=== PATIENT | female | born 1935 | race Caucasian/White ===

== ENCOUNTER → 2018-04-10 07:47 | Outpatient (CLI) | payer MEDICARE, BC, SELFPAY ==
--- NOTE | 2018-04-10 07:51 | US_ITS ---
STUDY: THYROID ULTRASOUND REASON FOR EXAM: Female, 82 years old. Nodules TECHNIQUE: Ultrasound evaluation of the thyroid was performed with real-time and static hobbs-scale imaging. COMPARISON: None. FINDINGS: RIGHT LOBE: The right lobe of the thyroid gland measures 5.5x2.3x1.9 cm. There is a heterogeneous echotexture. Multiple nodules in the right thyroid lobe. Hypoechoic solid nodule in the right thyroid lobe measuring 11 x 14 x 9 mm. The lesion is solid with regular margins and intra- nodular doppler flow. LEFT LOBE: The left lobe of the thyroid gland measures 5.6 x 2.1 x 1.5 cm. There is a heterogeneous echotexture. There is a nodule in the inferior thyroid lobe measuring 14 x 17 x 7 mm. This contains internal septations. The lesion is cystic with regular margins and shilpi nodular doppler flow. ISTHMUS: The isthmus measures 5 mm. Isthmus nodule measures 5 x 4 x 2 mm. The lesion is solid with regular margins and intra- nodular doppler flow. US/Thyroid IMPRESSION: Solid right thyroid nodules and isthmus nodule. Cystic avascular nodule of the left thyroid lobe. Both lobes are diffusely heterogeneous. Electronically Signed: Tone Terry MD at 17:16 EDT , Service support ,
[2018-04-10 08:22] LABS: Red Blood Cells-Urine 0 SEEN /hpf (0-5)
[2018-04-10 09:15] LABS: Absolute Lymphocyte Count 1.85 X10^3/ul (0.83-4.51); Absolute Neutrophil Count 4.1 X10^3/uL (2.0-7.7); Basophil# 0.03 X10^3/uL; Basophil% 0.5 % (0-1); Eosinophil# 0.06 X10^3/uL; Eosinophils% 0.9 % (0-5); Hematocrit 45.3 % (37-47); Hemoglobin 14.4 g/dl (12.0-15.0); Lymphocyte # 1.85 X10^3/ul (4.0); Lymphocyte % 28.6 % (19-41); Mean Corp Hgb Conc 31.8 g/gl (32-36); Mean Corpuscular Hgb 29.9 pg (27.0-32.0); Mean Platelet Vol. 10.3 fl (6.2-12.0); Monocyte# 0.41 X10^3/uL; Monocyte% 6.3 % (0-10); Neutrophil # 4.11 X10^3/uL (2.7-7.7); Neutrophil % 63.5 % (47-70); Platelet Count 221 K/mm3 (150-450); RBC Distribution Width CV 13.1 % (11.6-14.6); Red Blood Count 4.82 M/mm3 (4.2-5.4); White Blood Count 6.5 K/mm3 (4.4-11.0)
[2018-04-10 09:16] LABS: POSITIVE COUNT NO; POSITIVE DIFFERENTIAL NO; POSITIVE MORPHOLOGY NO
[2018-04-10 09:21] LABS: Color, Urine Yellow (Yellow); Glucose, Dipstick Normal (Normal); Ketone-Dipstick Negative (Negative); Leukocyte Esterase-Dipstick 500 /ul (Negative); Nitrite-Dipstick Negative (Negative); Occult Blood-Urine 10 /ul (Negative); Protein-Dipstick Negative (Negative); Urine Bilirubin Dipstick Negative (Negative); Urine Clarity Sl. Cloudy (Clear); Urine Urobilinogen Normal (Normal)
[2018-04-10 09:30] LABS: Bacteria RARE /hpf (None Seen); Mucous, Urine RARE /hpf (<or=2+); Squamous Epithelial Cells - UA 0-5 SEEN /hpf (5-10); White Blood Cells 5-10 SEEN /hpf (0-5)
[2018-04-10 09:32] LABS: Hemoglobin A1c 6.2 % (4.2-6.3)
[2018-04-10 09:36] LABS: ALB/GLOB Ratio 0.9 RATIO (0.9-2.4); AST(SGOT) 18 U/L (15-37); Alanine Aminotransfer ALT/SGPT 17 U/L (13-56); Albumin, Serum 3.5 g/dL (3.2-5.0); Alkaline Phosphatase 85 U/L (45-117); Anion Gap 9 (5-15); BUN 15 mg/dL (7-18); BUN/Creat Ratio 15.3 RATIO (10-20); Calcium,Total 9.1 mg/dL (8.5-10.1); Chloride 103 mmol/L (98-107); Creatinine, Serum 0.98 mg/dL (0.55-1.02); EST Glomerular Filtration Rate 58 mL/min (>60); Est Glom Filt Rate - Afr Amer 70 mL/min (>60); Globulin 4.1 g/dL (2.2-4.2); Glucose 129 mg/dL (74-106); Potassium 4.3 mmol/L (3.5-5.1); Protein, Total 7.6 g/dL (6.4-8.2); Sodium Level 140 mmol/L (136-145); Thyroid Stim Hormone (TSH) 0.65 uIU/mL (0.358-3.74)
[2018-04-10 09:42] LABS: Microalbumin,Random Urine 13.8 mg/L (NO RANGE EST.); Microalbumin:Creatinine Ratio 13.1 mg/g CRE (<30 mg/g CRE)
[2018-04-10 09:55] LABS: Vitamin D,25 Hydroxy 26.8 ng/mL (29.95-100.01)
== END ==
PROVIDERS: Family Provider Internal Medicine; PCP Internal Medicine; Visit Provider Internal Medicine
DX: E04.1 Nontoxic single thyroid nodule (principal); E55.9 Vitamin D deficiency, unspecified; R73.02 Impaired glucose tolerance (oral)
CPT/HCPCS: 36415; 76536; 80053; 81001; 82043; 82306; 82570; 83036; 84443; 85025

== ENCOUNTER → 2018-05-04 14:53 | Outpatient (CLI) | payer MEDICARE, BC, SELFPAY ==
--- NOTE | 2018-05-04 09:30 | ASPS_PTH ---
PATIENT: MADELINE LOPEZ LOC: [facility]I U#:[id number] AGE/SX: 89/F ROOM: RE05/04/[address]: Dr. Kirby Thomas MD : 1935 BED: DIS: SPEC #: [id number] RECD: 05/05/18 11:36 STATUS: ELOINA ANGIE #: [id number] NIK: 05/04/18 09:[address]: Kirby Thomas DEPT: CYTOLOGY RECD BY: Vinay Mixon ENTERED: 05/05/18 11:37 SP TYPE: ASPIRATION OTHR DR: Dr. Abby Friend, DO Tissues: A - Thyroid gland, NOS B - Thyroid gland, NOS Procedures: Pap Stain (control) Special Stain Group II Cytology Other HEADER OPERATION: Ultrasound-guided fine needle aspiration bilateral thyroid PRE-OP DIAGNOSIS: Multinodular goiter TISSUE SUBMITTED: A ? Fine needle aspiration right thyroid 12 slides, B - Fine needle aspiration left thyroid 12 slides DIAGNOSIS CYTOLOGY A. Right thyroid, ultrasound-guided fine needle aspiration (smears): Consistent with benign cystic colloid nodule. See cytology study and comment. B. Left thyroid, ultrasound-guided fine needle aspiration (smears): Consistent with benign colloid nodule. SJ:rg 05/08/18 COMMENT Correlation with clinical, radiologic findings and appropriate follow up are necessary. CYTOLOGY STUDY Slides are reviewed. A. The specimen is adequate for evaluation. The specimen consists of numerous macrophages, abundant colloid and benign follicular cells. B. The specimen is adequate for evaluation. The specimen consists of benign follicular cells and colloid. CYTOLOGY GROSS A - Received are 12 smears labeled with the patient's name and designated per the requisition as right thyroid. Submitted for staining. B - Received are 12 smears labeled with the patient's name and designated per the requisition as left thyroid. Submitted for staining. 05/05/18 TC:5 CPT: 40624 x2
== END ==
PROVIDERS: Family Provider Internal Medicine; PCP Internal Medicine; Visit Provider Surgery
DX: E04.2 Nontoxic multinodular goiter (principal)
CPT/HCPCS: 88161; 88313

== ENCOUNTER → 2020-07-16 08:29 | Outpatient (CLI) | payer MEDICARE, BC, SELFPAY ==
--- NOTE | 2020-07-16 08:47 | US_ITS ---
HISTORY: Follow-up nodules. 4 previous thyroid ultrasounds. The most recent thyroid ultrasound available for comparison is April 10, 2018. The first thyroid ultrasound available for comparison is from November 03, 2011, 8.5 years earlier. The report from the thyroid ultrasound of November 03, 2011 discusses a report from a thyroid ultrasound of October 28, 2004. Nodules measuring 1.2 and 1.3 cm were discussed in the impression of the 2011 study, describing nodules in the 2004 study. 77 images. Findings: Within the thyroid isthmus, which measures 6 mm, there is a thyroid nodule. This thyroid isthmus nodule measures 6 x 6 x 4 mm. The nodule is cystic. It is hypoechoic. It is wider than tall. It has smooth margins. As no associated calcifications. This is not suspicious. The right lobe of the thyroid gland measures 2.1 x 5.3 x 2 cm. It is very heterogeneous in appearance. It may be hypervascular. Within the inferior pole of the right lobe of the thyroid gland there is a nodule which measures 10 x 7 x 11 mm. It is mixed solid and cystic. It is isoechoic and has components that are hypoechoic. It is wider than tall. It has smooth margins. Has no associated calcifications or comment artifact. It has a TI-RADS score of 2 and is not suspicious. A third nodule within the superior lateral aspect of the right lobe of the thyroid gland measures 9 x 11 x 11 mm. It is solid or almost completely solid. It is hyperechoic to isoechoic. It is wider than tall. It has smooth margins. There are no associated calcifications. It has a TI rads score of 3. It is mildly suspicious. It demonstrates vascularity on color Doppler imaging. A fourth nodule within the right lobe of the thyroid gland measures 15 x 10 x 12 mm. It is mixed solid and cystic. It is hypo-to isoechoic. It is taller than wide. It has smooth defined margins. It has no associated calcifications or comet tail artifact. It demonstrates flow on color Doppler imaging. This has a TI rads score of 5, moderately suspicious. The left lobe of the thyroid gland is also heterogeneous in echotexture. The left lobe of the thyroid gland measures 5.4 x 1.6 x 2 cm. The left lobe of the thyroid gland demonstrates flow on color Doppler imaging. Within the superior pole of the left lobe of the thyroid gland there is a complex cyst. It measures 19 x 18 x 9 mm. Within the mid anterior portion left lobe of thyroid gland there is a nodule measuring 11 x 10 x 6 mm. This nodule is solid. It is isoechoic. It is taller than wide. It has smooth margins. There are no associated comet tail artifacts. It has a TI rads score of 6, moderately suspicious. I been able to load the filter rates 2012 study for comparison. Heterogeneity to both lobes of the thyroid gland is similar. Many more cystic lesions were present on the right lobe of thyroid gland on the 2012 study than previously. Cystic lesions were also more prominent within the left lobe of the thyroid gland on the previous study. I'm unable to identify the specific lesions that I have identified and described on today's study on that 2012 study. Visualized 2017 study is also limited and available. The thyroid isthmus lesion is unchanged. The lesion within the inferior pole of the right lobe of the thyroid gland was larger on the previous study. Decrease in size is consistent with benignity. The third nodule, the one in the superior anterior lateral aspect of the right lobe of the thyroid gland is not identified definitively on the previous study. The fourth nodule, anteriorly within the superior portion of the right lobe of the thyroid gland was larger on the previous study. Decreasing in size is suggestive of benignity. The third lesion within the left lobe of the thyroid gland, the only lesion described in the left lobe of the thyroid gland that is solid is not definitively identified on the previous study. US/Thyroid IMPRESSION: Persistent findings consistent with a multinodular goiter. Persistent bilateral masses both solid and cystic. 15 years of thyroid ultrasounds without a defined definitive malignancy. The probability that any of these lesions is malignant is low. There are lesions, however, measured and described on the current study which are moderately suspicious for neoplasia. Due to their small size continued follow-up is recommended. at 0554 Reported and signed by: Wilfrido Agarwal MD Electronically Signed: Wilfrido Agarwal MD at 5:32 EDT Tel , Service support ,
--- NOTE | 2020-07-16 09:40 | BD_ITS ---
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 COMPARISON: Comparison is made with prior study dated 09/07/2016. FINDINGS: Lumbar Spine (L1-L4): g/cm2 (0.871) / T-score (-2.4) / Z-score (-0.6) Findings are suggestive of osteopenia with a high fracture risk. Left Femur Total: g/cm2 (0.869) / T-score (-1.1) / Z-score (1.1) Left Femoral Neck: g/cm2 (0.755) / T-score (-2.0) / Z-score (0.2) Right Femur Total: g/cm2 (0.849) / T-score (-1.3) / Z-score (0.9) Right Femoral Neck: g/cm2 (0.871) / T-score (-1.2) / Z-score (1.1) The T-Scores on the most recent prior examination were: Lumbar Spine (L1-L4): There has been improvement of bone density since the previous examination. Left Femur Total: which represents an improvement of 5.7%. Right Femur Total: which represents an improvement of 0.7%. BD/Dexa Bone Density Study IMPRESSION: The patient is considered osteopenic as outlined below according to World Sravan Organization (WHO) criteria with a moderate fracture risk. There has been improvement of bone density since the previous examination. Reference Information: The T-score is the number of standard deviations above or below the standard which is normal for young adults at their peak bone mineral density. The World Health Organization (WHO) interprets the T-scores as follows: Above -1 Normal bone density Between -1 and -2.5 Osteopenia Equal to / or below -2.5 Osteoporosis As a practical clinical guideline, osteopenia may be graded as follows: Mild -1 through -1.5 Moderate -1.6 through -2.0 Severe -2.1 through -2.4 The Z-score is the number of standard deviations above or below age-matched controls. A Z-score of less than -1.5 would be considered abnormal. References: 1. NIH Osteoporosis and Related Bone Diseases www osteo.org 2. International Society for Clinical Densitometry www iscd.org 3. National Osteoporosis Foundation www nof.org Electronically Signed: Dez Izaguirre, at 15:50 EDT , Service support ,
== END ==
PROVIDERS: PCP Internal Medicine; Visit Provider Internal Medicine
DX: E04.1 Nontoxic single thyroid nodule (principal); Z78.0 Asymptomatic menopausal state
CPT/HCPCS: 76536; 77080

== ENCOUNTER → 2020-07-17 09:19 | Outpatient (CLI) | payer MEDICARE, BC, SELFPAY ==
--- NOTE | 2020-07-17 09:25 | RAD_ITS ---
STUDY: X-RAY - ESOPHAGUS (BARIUM SWALLOW) WITH FLUOROSCOPY REASON FOR EXAM: Female, 84 years old. Order states choking, h/o breast CA -- pt poor historian, states sometimes food gets stuck TECHNIQUE: 15 view(s) of the esophagus were obtained following swallowing of barium. FLUOROSCOPY TIME (if supplied): (0:30) minutes/seconds COMPARISON: None. FINDINGS: There is no demonstrated esophageal foreign body. There is no demonstrated stricture or mucosal abnormality. Small hiatal hernia with gastroesophageal reflux. The patient ingested a 12 mm tablet of barium without any difficulty. Normal visualized aortic arch and descending thoracic aorta. Normal visualized pulmonary parenchyma. There are diffuse degenerative changes of the visualized thoracic spine. RAD/Esophagus Dual Contrast IMPRESSION: Small sliding hiatal hernia with gastroesophageal reflux. Electronically Signed: Dez Izaguirre, at 10:35 EDT , Service support ,
== END ==
PROVIDERS: PCP Internal Medicine; Visit Provider Internal Medicine
DX: T17.308A Unspecified foreign body in larynx causing other injury, initial encounter (principal)
CPT/HCPCS: 74221

== ENCOUNTER → 2020-07-29 10:25 | Outpatient (CLI) | payer MEDICARE, BC, SELFPAY ==
--- NOTE | 2020-07-29 10:26 | NM_ITS ---
CLINICAL: 85-year-old female with reported history of carcinoma of the breast with current complaint of left lateral chest wall-rib pain. WHOLE BODY 99m Tc MDP RADIONUCLIDE BONE SCINTIGRAPHY COMPARISON: Plain film radiograph report bilateral ribs1 FINDINGS: Following the intravenous administration of 25.5 mCi of 99m Tc MDP, whole body bone images reveal: 1. Increased radiopharmaceutical concentration is defined in the glenohumeral, acromioclavicular and sternoclavicular compartments of both shoulders, upper cervical spine posteriorly on the left and right, fourth thoracic vertebra posteriorly on the left and right, fifth lumbar vertebra and sacrum, the right elbow, bilateral wrists and hands, both knees, the hip articulations bilaterally. 2. The remaining skeletal structures are scintigraphically unremarkable with normal-appearing renal images and urinary bladder activity identified. NM/Bone Scan Whole Body IMPRESSION: 1. The increase in radiopharmaceutical concentration identified in the cervical, thoracic and lumbar spine, sacrum, right elbow, shoulders bilaterally, right-left wrists, both hands, right-left knees, bilateral hips is most consistent with degenerative arthritis. 2. Meticulous attention paid to the left lateral chest wall-ribs demonstrates no evidence of abnormal increased tracer uptake, trauma-fracture. There is no scintigraphic depiction of diffuse axial skeletal metastatic disease on the current examination. Electronically Signed: Vinay Wesley DO at 23:26 EST Tel , Service support ,
== END ==
PROVIDERS: PCP Internal Medicine; Referring Provider Internal Medicine; Visit Provider Internal Medicine
DX: R07.81 Pleurodynia (principal)
CPT/HCPCS: 78306

== ENCOUNTER 2020-08-25 06:19 | Day surgery (SDC) | payer MEDICARE, BC, SELFPAY ==
[2020-07-31 13:42] VITALS: BMI 27.6
--- NOTE | 2020-08-25 | GASB_PTH ---
PATIENT: MADELINE LOPEZ LOC: EN U#:[id number] AGE/SX: 85/F ROOM: RE08/25/[address]: Dr. Kirby Thomas MD : 1935 BED: DIS: 08/25/2020 SPEC #: [id number] RECD: 08/25/20 13:46 STATUS: ELOINA REQ #: [id number] NIK: 08/25/20 00:[address]: Kirby Thomas DEPT: SURGICAL PATHOLOGY RECD BY: Ron Monreal ENTERED: 08/26/20 08:40 SP TYPE: Gastric Bx OTHR DR: Dr. Abby Friend, DO Abby Friend, Tissues: A - Gastric mucous membrane B - Esophagus, NOS Procedures: Special Stain Group II Surgery Specimen Level IV Alcian Blue/PAS (control) HEADER OPERATION: [place] [place] DIAGNOSIS: Esophageal dysphagia; hematemesis; nontoxic multinodular goiter TISSUE SUBMITTED: A - Antrum biopsy for histo and H. pylori, B - Esophageal biopsy MICROSCOPIC DIAGNOSIS A. Gastric antrum, biopsy: Chronic active gastritis. See comment. B. Esophagus, biopsy: Gastroesophageal junctional mucosa with chronic inflammation. No evidence of goblet cell metaplasia. Focal changes of reflux. See comment. AM:millie 08/27/20 COMMENT A. The results of immunohistochemistry for Helicobacter pylori will be reported separately ([id number]). B. Alcian blue/PAS stain with matched control supports the above diagnosis. MICROSCOPIC DESCRIPTION Slides are reviewed. GROSS DESCRIPTION A - Received in fixative is one container labeled with the patient's name and designated antrum biopsy. The specimen consists of two irregular fragments of light jacskon soft tissue that in aggregate measure 0.5 x 0.4 x 0.1 cm. The specimen is totally submitted in one cassette. B - Received in fixative is one container labeled with the patient's name and designated esophageal biopsy. The specimen consists of multiple irregular fragments of light jackson soft tissue that in aggregate measure 1 x 0.4 x 0.1 cm. The specimen is totally submitted in one cassette. / MARLENY:millie 08/26/20 TC:3 CPT: 63067 x2, 92450
--- NOTE | 2020-08-25 06:24 | HP_ITS ---
Intake Vital Signs 07/31/20 Height 5 ft 1.5 in 07/31/20 Weight: 148 lb 5 oz 07/31/20 BMI 27.6 07/31/20 BP 137/77 H 07/31/20 Blood Pressure Location Lt brachial 07/31/20 Position Sitting 07/31/20 Respiration 18 07/31/20 Pulse 80 07/31/20 Pulse Source NIBP 07/31/20 Temp 98.4 F 07/31/20 Temp Source Temporal 07/31/20 Pulse Oximetry (%) 97 07/31/20 Oxygen Delivery Method room air Intake Visit Reasons: Thyroid Nodules Chief Complaint: thyroid nodules and hematemesis Fur Dyer Required: No Is patient in pain?: No Allergies No Known Allergies Allergy (Verified 07/31/20 13:17) Medications Donepezil HCl [Aricept] 10 mg PO DAILY 11/22/16 [History Confirmed 07/31/20] Multivitamin [Daily Multiple Vitamin] 1 ea PO DAILY 11/22/16 [History Confirmed 07/31/20] Simvastatin [Zocor] 40 mg PO QHS 11/22/16 [History Confirmed 07/31/20] omeprazole 20 mg capsule,delayed release 20 mg PO DAILY 07/31/20 [History Confirmed 07/31/20] Is last menstrual period known: No Post menopausal: No Patient : No PFSH Medical History Dementia (Acute) Hyperlipidemia (Acute) MVP (mitral valve prolapse) (Acute) DVT (deep venous thrombosis) (Acute) Diabetes (Acute) Thyroid nodule (Acute) CAD (coronary artery disease) (Acute) GERD (gastroesophageal reflux disease) (Acute) Osteoarthritis (Acute) History of breast cancer (Acute) Surgical History S/P hemorrhoidectomy (Acute) S/P hysterectomy (Acute) S/P left mastectomy (Acute ~2000) S/P right mastectomy (Acute ~2016) Family History Brother Diabetes Cancer lung, prostate Mother Colon cancer Social History (Updated 07/31/20 @ 13:[address] Kirby Thomas MD) Smoking Status: Never smoker HPI HPI Surgical H&P: Yes HPI: AVANELL JOHN, is a 85 F who presents to the office today for For dysphagia and hematemesis as well as multinodular goiter. Patient has had difficulty with choking on her food and dysphagia-like symptoms. She has had an episode of hematemesis this past year as well. She had a recent Barium swallow completed [facility] on 07/17/2020. She was noted to have a small sliding hiatal hernia with gastroesophageal reflux disease noted. The patient is rather poor historian and really does not complain much of any problems swallowing or eating. In addition the patient has had a recent thyroid ultrasound. I have performed a fine-needle aspiration on her in 2018 bilaterally which was negative. This was completed on 07/16/2020. This was an extremely detailed exam. In the impression read as persistent findings consistent with multinodular goiter. Persistent bilateral masses both cystic and solid. 15 years of thyroid ultrasounds without a definitive defined malignancy. Probability of any of these lesions being malignant is low. There are lesions however measured and described on the current study which are moderately suspicious. Due to their small size continued follow-up is recommended. ROS General General: Yes weight change; no appetite, fatigue, colon cancer, breast cancer or weakness HEENT HEENT: Yes difficulty swallowing; no eye injury, eye surgery, swollen glands or hoarseness Endo Endocrine: Yes diabetes mellitus; no thyroid disease, thyroid cancer, Hair loss, heat intolerance or cold intolerance Musc Musculoskeletal: Yes arthritis; no back problems, rheumatoid arthritis, gout or joint pain Cardio Cardiovascular: No murmur, pacemaker, heart disease, atrial fibrillation, high blood pressure, heart attack, heart stent, palpitations, shortness of breat with exertion or chest pain Psych Psychiatric: No depression, anxiety or hearing voices Resp Respiratory: No shortness of breath, No sleep apnea, No cough, No COPD, No asthma, No emphysema, No wheezing Gastro Gastrointestinal: No abdominal pain, Yes nausea or vomiting, No diarrhea, Yes constipation, No blood in stool, No acid reflux, No hemorrhoids, No ulcers, No gallbladder problem, No black,tarry stools Rolf Hematologic: No blood thinners, No blood disorders, No bleeding, No anemia, No blood clots Neuro Neurologic: No weakness Exam Const General: no acute distress, well developed, well hydrated Orientation: oriented to person, oriented to place, oriented to time [facility] Head: normocephalic, atraumatic Ears: external ears normal Mouth: moist mucous membranes Other: No hard palpable nodules are identified. There is no lymphadenopathy bilaterally. Her thyroid he is nontender to touch. Eyes Sclera: sclerae normal Pupils: normal by confrontation Neck Neck: no lymphadenopathy noted Neck mass: No Thyroid: thyroid normal, symmetrical Chest Chest palpation & inspection: normal inspection of the chest Resp Effort & Inspection: normal respiratory effort Auscultation: clear to auscultation bilaterally Percussion: percussion normal Cardio Rate: regular rate Rhythm: regular rhythm Heart Sounds: no murmurs GI Palpation: soft, no hepatosplenomegaly, no masses, nontender Rectal Exam: other Other: Rectal exam deferred. Extrem General: normal to inspection, no clubbing, cyanosis or edema Assessment & Plan Problems 1. Esophageal dysphagia R13.10 2. Hematemesis, presence of nausea not specified K92.0 3. Non-toxic multinodular goiter E04.2 Plan I have discussed the above with the patient. I have offered the patient esophagogastroduodenoscopy for evaluation. I have explained the risks/benefits of the procedure and described the procedure. I have discussed the risks with the patient, including but not limited to: infection, bleeding, perforation of the GI tract requiring emergency surgery, inability to complete the procedure, injury to any internal organs, complications of anesthesia, etc. - the patient understands and agrees to proceed. I have answered all the patient's questions to the patient's satisfaction and the patient has no further questions. The patient has been given instructions for the colon cleansing preparation. With regards to her multinodular goiter I think yearly thyroid ultrasounds are appropriate. I do not think that repeating a fine-needle aspiration this year is warranted. I have reviewed her 2 most recent thyroid ultrasounds and I think everything appears to be stable. Orders Orders: EGD Today K92.0 Coding Level of Care Code Off vis,est,level 3 Diagnoses Esophageal dysphagia R13.10 ??Dysphagia type: esophageal phase Hematemesis, presence of nausea not specified K92.0 ??Nausea presence: unspecified Non-toxic multinodular goiter E04.2 COVID (Procedure Consent) Procedure Criteria Procedure Criteria: Yes Elective The surgeon/proceduralist and patient have discussed in detail the risk of exposure to and/or potential harm posed by the COVID-19 virus with having a surgery/procedure at this time versus the risk of? delaying the surgery/procedure. It is not possible to know either the risk of delaying the surgery or procedure or chance of getting an infection with perfect accuracy, but a joint decision was made between the patient and the surgeon/proceduralist ?to proceed at this time with the scheduled surgery/procedure as indicated on the consent form. I have re-examined the patient. There are no clinical changes since date of exam.
[2020-08-25 06:43] VITALS: BP 154/83; PULSE 80; RESP 16; TEMP 36.8; O2SAT 94; BMI 30.4
[2020-08-25] MEDS: Lactated Ringers 1,000 ML 100 ML IV (07:01)
--- NOTE | 2020-08-25 07:30 | IMM_PTH ---
PATIENT: MADELINE LOPEZ LOC: EN U#:[id number] AGE/SX: 85/F ROOM: RE08/25/[address]: Dr. Kirby Thomas MD : 1935 BED: DIS: 08/25/2020 SPEC #: [id number] RECD: 08/26/20 08:41 STATUS: SOUMaura REQ #: [id number] NIK: 08/25/20 07:[address]: Kirby Thomas DEPT: IMMUNOHISTOCHEMISTRY RECD BY: Adry Chavez ENTERED: 08/26/20 08:42 SP TYPE: IMMUNO OTHR DR: Dr. Abby Friend, DO Abby Friend, Tissues: A - Stomach, NOS Procedures: H Pylori (initial) PHYSICIAN & INSTITUTION [place] [address] SPECIMEN INFORMATION: Tissue Source: A - Antrum biopsy Clinical Info: Esophageal dysphagia; hematemesis Specimen Number: [id number] CPT code: 31735 METHODOLOGY: Deparaffinized sections of prefer/formalin-fixed tissue or PAP/DQ stained slides are incubated with monoclonal/polyclonal antibodies/oligonucleotide probes. Localization is made via biotin free immunoperoxidase method. Appropriate controls are performed and reacted as expected. Results on target cell population are indicated in the following table: RESULTS: ANTIBODY / CLONE RESULT Block A H Pylori (polyclonal) positive These tests were developed and their performance characteristics determined by [facility]. They may not have been cleared or approved by the U.S. Food and Drug Administration. The FDA has determined that such clearance or approval is not necessary. The above immunohistochemical/dualISH markers are ordered and reviewed by the Pathologist. INTERPRETATION: A. Antrum, biopsy: Positive for Helicobacter pylori organisms. AM:millie 08/27/20
[2020-08-25 07:45] VITALS: BP 130/86; BP 154/83; PULSE 77; RESP 16; TEMP 36.4; O2SAT 97
--- NOTE | 2020-08-25 07:48 | OP.CCLET_ITS ---
08/25/2020 Abby Friend Do Re : Upper GI endoscopy procedure for Ashlyn Montoya Dear Phuc This procedure was performed on Tuesday, August 25, 2020. My impressions and recommendations are as follows: Impressions : - LA Grade A reflux esophagitis. Biopsied. - 4 cm hiatal hernia. - Gastritis. Biopsied. - Normal examined duodenum. Recommendations : - Await pathology results. - Repeat upper endoscopy (date not yet determined) for surveillance. - Telephone my office for pathology results in 1 week. - Continue present medications. My findings are described in the full procedure note, which is enclosed. If I can be of further assistance, please feel free to contact me at Doctor phone number(s): , Fax: [phone], Work: . Sincerely, MD Kirby Henriquez MD 08/25/2020 7:47:46 AM This report has been signed electronically.
--- NOTE | 2020-08-25 07:48 | OP.EGD_ITS ---
Patient Name: Ashlyn Montoya Procedure Date: 08/25/2020 7:07 AM Date of : 1935 Age: 85 Procedure: Upper GI endoscopy Indications: Dysphagia Providers: Kirby Thomas MD Referring MD: Abby Friend Medicines: See the Anesthesia note for documentation of the administered medications Patient Profile: This is an 85 year old female. Refer to note in patient chart for documentation of history and physical. Complications: No immediate complications. Procedure: Pre-Anesthesia Assessment: - Prior to the procedure, a History and Physical was performed, and patient medications and allergies were reviewed. The patient's tolerance of previous anesthesia was also reviewed. The risks and benefits of the procedure and the sedation options and risks were discussed with the patient. All questions were answered, and informed consent was obtained. Prior Anticoagulants: The patient has taken no previous anticoagulant or antiplatelet agents. ASA Grade Assessment: III - A patient with severe systemic disease. After reviewing the risks and benefits, the patient was deemed in satisfactory condition to undergo the procedure. After obtaining informed consent, the endoscope was passed under direct vision. Throughout the procedure, the patient's blood pressure, pulse, and oxygen saturations were monitored continuously. The Endoscope was introduced through the mouth, and advanced to the second part of duodenum. The upper GI endoscopy was accomplished without difficulty. The patient tolerated the procedure well. Scope In: 7:36:51 AM Scope Out: 7:40:38 AM Total Procedure Duration Time 0 hours 3 minutes 47 seconds Findings: LA Grade A (one or more mucosal breaks less than 5 mm, not extending between tops of 2 mucosal folds) esophagitis with no bleeding was found 34 to 36 cm from the incisors. Biopsies were taken with a cold forceps for histology. A 4 cm hiatal hernia was present. Diffuse moderate inflammation characterized by congestion (edema), erythema and granularity was found in the prepyloric region of the stomach. Biopsies were taken with a cold forceps for Helicobacter pylori testing. The examined duodenum was normal. Impression: - LA Grade A reflux esophagitis. Biopsied. - 4 cm hiatal hernia. - Gastritis. Biopsied. - Normal examined duodenum. Recommendation: - Await pathology results. - Repeat upper endoscopy (date not yet determined) for surveillance. - Telephone my office for pathology results in 1 week. - Continue present medications. Procedure Code(s): --- Professional --- 28736, Esophagogastroduodenoscopy, flexible, transoral; with biopsy, single or multiple Diagnosis Code(s): --- Professional --- K21.0, Gastro-esophageal reflux disease with esophagitis K44.9, Diaphragmatic hernia without obstruction or gangrene K29.70, Gastritis, unspecified, without bleeding R13.10, Dysphagia, unspecified CPT copyright 2017 [employer]. All rights reserved. The codes documented in this report are preliminary and upon nuclear powerplant mechanic helper review may be revised to meet current compliance requirements. MD Kirby Henriquez MD 08/25/2020 7:47:46 AM This report has been signed electronically. Number of Addenda: 0 Note Initiated On: 08/25/2020 7:07 AM
[2020-08-25 07:50] VITALS: BP 135/85; BP 154/83; PULSE 72; RESP 16; O2SAT 97
[2020-08-25 07:54] VITALS: BP 154/83; PULSE 73; RESP 16; O2SAT 96
[2020-08-25 08:00] VITALS: BP 146/86; BP 154/83; PULSE 71; RESP 16; TEMP 36.3; O2SAT 94
[2020-08-25 08:10] VITALS: BP 154/83
== END 2020-08-25 08:25 | disposition home or self-care (01) ==
LOC: EN 06:20 → AC 06:20
PROVIDERS: PCP Internal Medicine; Referring Provider Internal Medicine; Visit Provider Surgery
PROC: 0DJ08ZZ Inspection of Upper Intestinal Tract, Via Natural or Artificial Opening Endoscopic (ICD-10-PCS; CPT 43235; principal; 2020-08-25 07:25)
DX: K29.50 Unspecified chronic gastritis without bleeding (principal); K21.00 Gastro-esophageal reflux disease with esophagitis, without bleeding; K44.9 Diaphragmatic hernia without obstruction or gangrene; Z20.828 Contact with and (suspected) exposure to other viral communicable diseases; E04.2 Nontoxic multinodular goiter; F03.90 Unspecified dementia, unspecified severity, without behavioral disturbance, psychotic disturbance, mood disturbance, and anxiety; E78.5 Hyperlipidemia, unspecified; I34.1 Nonrheumatic mitral (valve) prolapse; E11.9 Type 2 diabetes mellitus without complications; E78.00 Pure hypercholesterolemia, unspecified; I25.10 Atherosclerotic heart disease of native coronary artery without angina pectoris; K21.9 Gastro-esophageal reflux disease without esophagitis; M19.90 Unspecified osteoarthritis, unspecified site; Z78.0 Asymptomatic menopausal state; Z85.3 Personal history of malignant neoplasm of breast; Z79.899 Other long term (current) drug therapy
CPT/HCPCS: 43239; 87426; 88305; 88313; 88342; C9803; J7120; J2405

== ENCOUNTER → 2020-11-05 08:57 | Outpatient (CLI) | payer MEDICARE, BC, SELFPAY ==
--- NOTE | 2020-11-05 09:00 | NM_ITS ---
CLINICAL: 85-year-old female with reported history of thyroid nodularity. I-123 THYROID UPTAKE and SCAN COMPARISON: Thyroid ultrasound report 07/16/2020, I-123 thyroid scan and uptake 11/03/2011 FINDINGS: The patient was administered a 303 uCi I-123 capsule by mouth. The 4-hour I-123 radioactive iodine thyroidal uptake was calculated to be 9.1 % (normal 5 to 25 %). The 24-hour I-123 radioactive iodine thyroidal uptake was calculated to be 37.1 % (normal 5 to 40 %). The I-123 thyroid scan demonstrates relatively homogeneous radiopharmaceutical concentration throughout both lobes of a U-shaped thyroid gland. There are no colloidal parenchymal hypofunctioning cold nodules noted in either lobe of the thyroid gland. NM/Thyroid Uptake Single or Mult IMPRESSION: 1. NORMAL 4- and 24-hour I-123 radioactive iodine thyroidal uptakes. 2. 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 (Jerod et al, J Nucl Med 32: 1455, 1990). 3. No hypofunctioning-cold nodules are identified. 4. Overall compared to the previous I-123 thyroid scan and uptake dated 11/03/2011, there is no significant interval change. Radiopharmaceutical distribution is more homogeneous-uniform in both lobes of the thyroid colloid, on the present examination. Electronically Signed: Vinay Wesley DO at 21:46 EST Tel , Service support ,
== END ==
PROVIDERS: PCP Internal Medicine; Referring Provider Internal Medicine; Visit Provider Internal Medicine
DX: R79.89 Other specified abnormal findings of blood chemistry (principal)
CPT/HCPCS: 78012; A9516

== ENCOUNTER 2021-09-04 15:11 | Outpatient (CLI) | payer MEDICARE, BC, SELFPAY ==
[2021-09-04] MEDS: 0.9% Saline Lock 10 ML Syringe IV (15:34)
[2021-09-04 15:39] VITALS: BP 153/100; PULSE 77; RESP 16; TEMP 36.7; O2SAT 99; BMI 31.3
[2021-09-04 16:13] VITALS: BP 150/87; PULSE 69; RESP 16; TEMP 37; O2SAT 100
[2021-09-04 17:13] VITALS: BP 167/86; PULSE 70; RESP 16; TEMP 36.5; O2SAT 98
== END 2021-09-04 17:13 | disposition home or self-care (01) ==
LOC: MS3OUT 15:12 → MS3 15:13
PROVIDERS: PCP Internal Medicine; Referring Provider Nurse Practitioner Adult Health; Visit Provider Nurse Practitioner Adult Health
DX: Z23 Encounter for immunization (principal); U07.1 COVID-19
CPT/HCPCS: J7050; M0245; Q0245; A4216

== ENCOUNTER → 2022-10-21 | Outpatient (CLI) | payer MEDICARE, SELFPAY ==
--- NOTE | 2022-10-21 11:06 | BD_ITS ---
STUDY: DUAL ENERGY X-RAY ABSORPTIOMETRY / DXA REASON FOR EXAM: Female, 87 years old. Z780 -- postmenopausal TECHNIQUE: Bone Mineral Density (BMD) measurements of lumbar spine and bilateral hips were obtained. COMPARISON: Comparison is made with prior study dated 07/16/2020. FINDINGS: Lumbar Spine (L1-L4): g/cm2 (0.904) / T-score (-1.3) / Z-score (1.6) Findings are suggestive of osteopenia with a low fracture risk. Left Femur Total: g/cm2 (0.822) / T-score (-1.0) / Z-score (1.4) Left Femoral Neck: g/cm2 (0.630) / T-score (-2.0) / Z-score (0.6) Right Femur Total: g/cm2 (0.768) / T-score (-1.4) / Z-score (0.9) Right Femoral Neck: g/cm2 (0.671) / T-score (-1.6) / Z-score (0.9) The T-Scores on the most recent prior examination were: Lumbar Spine (L1-L4): There has been improvement of bone density since the previous examination. Left Femur Total: which represents an improvement of 2%. Right Femur Total: which represents a worsening of 2.4%. BD/Dexa Bone Density Study IMPRESSION: The patient is considered osteopenic as outlined below according to World [employer] Organization (WHO) criteria with a moderate fracture risk. There has been improvement of bone density since the previous examination. Reference Information: The T-score is the number of standard deviations above or below the standard which is normal for young adults at their peak bone mineral density. The World Health Organization (WHO) interprets the T-scores as follows: Above -1 Normal bone density Between -1 and -2.5 Osteopenia Equal to / or below -2.5 Osteoporosis As a practical clinical guideline, osteopenia may be graded as follows: Mild -1 through -1.5 Moderate -1.6 through -2.0 Severe -2.1 through -2.4 The Z-score is the number of standard deviations above or below age-matched controls. A Z-score of less than -1.5 would be considered abnormal. References: 1. NIH Osteoporosis and Related Bone Diseases www osteo.org 2. International Society for Clinical Densitometry www iscd.org 3. National Osteoporosis Foundation www nof.org Electronically Signed: Dez Izaguirre MD at 9:30 EST ,
== END | disposition home or self-care (01) ==
PROVIDERS: PCP Internal Medicine; Visit Provider Internal Medicine
DX: Z78.0 Asymptomatic menopausal state (principal); M85.80 Other specified disorders of bone density and structure, unspecified site; V49 Car occupant injured in other and unspecified transport accidents
CPT/HCPCS: 77080